=== PATIENT | male | born 1960 | race Caucasian/White ===

== ENCOUNTER 2020-09-03 08:56 | Outpatient (CLI) | payer MEDICARE, SELFPAY | END 2020-09-03 08:57 | disposition home or self-care (01) | LOC: ANHCOVIDVC 08:56 | PROVIDERS: PCP Internal Medicine | DX: Z23 Encounter for immunization (principal) | CPT/HCPCS: 0001A; 91300 ==

== ENCOUNTER 2020-09-24 08:57 | Outpatient (CLI) | payer MEDICARE, SELFPAY | END 2020-09-24 08:58 | LOC: ANHCOVIDVC 08:57 | PROVIDERS: PCP Internal Medicine | DX: Z23 Encounter for immunization (principal) | CPT/HCPCS: 0002A; 91300 ==

== ENCOUNTER 2023-04-29 05:32 | Day surgery (SDC) | payer MEDICARE, SELFPAY ==
[2023-04-19 14:23] VITALS: BMI 27.5
--- NOTE | 2023-04-28 13:10 | P.PNAN_ITS ---
Anes - Initial Pre Proc Eval Procedure: Operation Date: 04/29/23 10:30 Proposed Procedures p Esophagogastroduodenoscopy - Steve Blank MD Date/Time: 04/28/23 13:10 Surgeon: Steve Blank MD Pre Op Diagnosis: GERD without esophagitis Patient Data Age: 62 Gender: M Height: 1.91 m Weight: 100 kg Allergies Allergy/AdvReac Type Severity Reaction Status Date / Time ciprofloxacin Allergy Unknown Dyspnea / Verified 04/29/23 09:24 SOB omeprazole Allergy Unknown Nausea Verified 04/29/23 09:24 povidone-iodine Allergy Unknown BLISTER/MILAGRO Verified 04/29/23 09:24 H soap Allergy Unknown BLISTER/MILAGRO Verified 04/29/23 09:24 H Home Medications Medication Instructions Recorded Confirmed Type amitriptyline 75 mg tablet 75 mg PO HS 04/19/23 04/29/23 History lisinopril 20 mg tablet 20 mg PO DAILY 04/19/23 04/29/23 History lorazepam 1 mg tablet 1 mg PO TID PRN Anxiety 04/19/23 04/29/23 History pantoprazole 40 mg tablet,delayed 40 mg PO DAILY 04/19/23 04/29/23 History release Patient hx anesthesia problems: none Family hx anesthesia problems: none Results Review: All pre-operative results and documents have been reviewed as part of the pre-o perative evaluation. COUNT INCLUDES [facility] Past Medical History Medical History (Updated 04/28/23 @ 15:31 by Steve Blank MD) Atrial fibrillation Hypertension Slgzh-Tyttjdlya-Jkicc (WPW) syndrome Surgical History Surgical History (Updated 04/28/23 @ 13:11 by Tamir Brown DO) H/O cardiac radiofrequency ablation for WPW Social History Social History Substance use type: marijuana Spiritual care concerns: No Anes - Eval Final PreProcedure Day of Procedure 04/28/23 13:10 Patient weight: overweight Heart: regular rate and rhythm Lungs: clear to auscultation Airway: Mallampati scale class II Neurological: alert and oriented Last oral intake: >/= 8 hours ASA classification: III Emergent: no Anesthetic plan: proceed Anesthesia type and monitoring: general GIVS and standard monitoring Results Review: All pre-operative results and documents have been reviewed as part of the pre- operative evaluation. Informed Consent: The patient's anesthetic plan and its attendant risks and benefits were discussed with the patient/family/POA. Questions were solicited and answers provided to the satisfaction of the patient/family/POA.
--- NOTE | 2023-04-28 15:30 | PM.HPGS ---
History of Present Illness History of Present Illness Consent: Risks, benefits, and alternatives have been discussed and questions answered. Patient agrees to proceed with procedure. Chief complaint: GERD without esophagitis Narrative: Christiano Gautam is a 62 year old male who was referred because of dysphagia. He has a history of having a severe esophageal stricture which was dilated by another physician in 2019. Initially could only be dilated up to 12 mm. Eventually it was up to 18 mm. Review of Systems Review of Systems: All systems reviewed & are unremarkable except as noted in HPI and below PMFSH Past Medical History Medical History Atrial fibrillation Hypertension Elbrz-Gehqptowz-Wtnoc (WPW) syndrome Surgical History Surgical History H/O cardiac radiofrequency ablation for WPW Social History Social History Substance use type: marijuana Spiritual care concerns: No Meds Home Medications and Allergies Home Medications Medication Instructions Recorded Confirmed Type amitriptyline 75 mg tablet 75 mg PO HS 04/19/23 04/29/23 History lisinopril 20 mg tablet 20 mg PO DAILY 04/19/23 04/29/23 History lorazepam 1 mg tablet 1 mg PO TID PRN Anxiety 04/19/23 04/29/23 History pantoprazole 40 mg tablet,delayed 40 mg PO DAILY 04/19/23 04/29/23 History release Allergies Allergy/AdvReac Type Severity Reaction Status Date / Time ciprofloxacin Allergy Unknown Dyspnea / Verified 04/29/23 09:24 SOB omeprazole Allergy Unknown Nausea Verified 04/29/23 09:24 povidone-iodine Allergy Unknown BLISTER/MILAGRO Verified 04/29/23 09:24 H soap Allergy Unknown BLISTER/MILAGRO Verified 04/29/23 09:24 H Exam Const: General: alert Orientation/consciousness: patient oriented x3 Resp: Auscultation: clear to auscultation bilaterally Cardio: Rhythm: regular rhythm GI: GI Palp: Yes Soft to palpation and No Tenderness to palpation present (GI) Neuro: General: patient oriented x3 Assessment and Plan Assessment and plan (1) Dysphagia: Code(s): R13.10 - Dysphagia, unspecified Status: Acute Assessment and Plan: EGD with possible biopsy or dilatation or cautery.
[2023-04-29 09:33] VITALS: BP 143/106; PULSE 124; RESP 22; TEMP 36.8; O2SAT 96; BMI 27.8
--- NOTE | 2023-04-29 09:35 | SUR.PREOP ---
Patient very anxious. States he took Ativan 1 mg po at home early this morning and brought another 1 mg tablet to the hospital. Asking if he can take it now. Patient appears anxious. Heartrate 124. Placed on monitor and sinus tachycardia noted. B/P elevated. Notified Dr. Brown and he states it is okay to have patient take his dose of Ativan. Reviewed bottle and patient took 1 mg Lorazepam with a few sips of water. Remains on heart monitor. Will contine to assess.
[2023-04-29] MEDS: LACTATED RINGERS 1,000 ML 150 ML IV CONT (09:43)
[2023-04-29] MEDS: BENZOCAINE (*SP) 60 ML SPRAY CAN (HURRICAINE) 1 SPRAY MUCOUS MEM (10:19)
[2023-04-29 10:32] VITALS: BP 114/76; PULSE 106; RESP 17; O2SAT 91
[2023-04-29 10:42] VITALS: BP 123/95; PULSE 105; RESP 22; O2SAT 93
[2023-04-29 10:52] VITALS: BP 142/99; PULSE 102; RESP 14; O2SAT 95
== END 2023-04-29 11:14 | disposition home or self-care (01) ==
PROVIDERS: PCP Internal Medicine; Visit Provider Internal Medicine Gastroenterology
PROC: 0DJ08ZZ Inspection of Upper Intestinal Tract, Via Natural or Artificial Opening Endoscopic (ICD-10-PCS; CPT 43235; principal; 2023-04-29 10:30)
DX: K22.2 Esophageal obstruction (principal); I48.91 Unspecified atrial fibrillation; I10 Essential (primary) hypertension; I45.6 Pre-excitation syndrome; F12.90 Cannabis use, unspecified, uncomplicated
CPT/HCPCS: 43249; 88305; C1726; J2704; J7120

== ENCOUNTER 2023-06-10 00:40 | Day surgery (SDC) | payer MEDICARE, SELFPAY ==
[2023-05-25 13:28] VITALS: BMI 27.5
--- NOTE | 2023-06-08 10:15 | SUR.PREOP ---
Patient called regarding upcoming procedure. Reviewed preop instructions, appointment times, and procedure prep.
--- NOTE | 2023-06-09 15:57 | PM.HPGS ---
History of Present Illness History of Present Illness Consent: Risks, benefits, and alternatives have been discussed and questions answered. Patient agrees to proceed with procedure. Chief complaint: dysphagia Narrative: Christiano Gautam is a 62 year old male with dysphagia for solid food. Two months ago he was found have a high-grade stricture which could be dilated only up to about 13 mm. Review of Systems Review of Systems: All systems reviewed & are unremarkable except as noted in HPI and below PMFSH Past Medical History Medical History Atrial fibrillation Hypertension Exmhz-Lkftvafot-Bkqat (WPW) syndrome Surgical History Surgical History H/O cardiac radiofrequency ablation for WPW Social History Social History Smoking status: Never smoker Alcohol intake: current Drinks per week: 2 Substance use: never Substance use type: does not use Living arrangements: with family Spiritual care concerns: No Meds Home Medications and Allergies Home Medications Medication Instructions Recorded Confirmed Type amitriptyline 75 mg tablet 75 mg PO HS 04/19/23 05/25/23 History lisinopril 20 mg tablet 20 mg PO DAILY 04/19/23 05/25/23 History lorazepam 1 mg tablet 1 mg PO TID PRN Anxiety 04/19/23 05/25/23 History pantoprazole 40 mg tablet,delayed 40 mg PO DAILY 04/19/23 05/25/23 History release Allergies Allergy/AdvReac Type Severity Reaction Status Date / Time ciprofloxacin Allergy Unknown Dyspnea / Verified 06/10/23 08:48 SOB omeprazole Allergy Unknown Nausea Verified 06/10/23 08:48 povidone-iodine Allergy Unknown BLISTER/MILAGRO Verified 06/10/23 08:48 H soap Allergy Unknown BLISTER/MILAGRO Verified 06/10/23 08:48 H Exam Const: General: alert Orientation/consciousness: patient oriented x3 Resp: Auscultation: clear to auscultation bilaterally Cardio: Rhythm: regular rhythm GI: GI Palp: Yes Soft to palpation and No Tenderness to palpation present (GI) Neuro: General: patient oriented x3 Assessment and Plan Assessment and plan (1) Dysphagia: Code(s): R13.10 - Dysphagia, unspecified Status: Acute Assessment and Plan: EGD with possible biopsy or dilatation or cautery.
[2023-06-10 08:49] VITALS: BP 143/93; PULSE 113; RESP 18; TEMP 36.2; O2SAT 93
--- NOTE | 2023-06-10 08:57 | P.PNAN_ITS ---
Anes - Initial Pre Proc Eval Procedure: Operation Date: 06/10/23 09:30 Proposed Procedures p Esophagogastroduodenoscopy - Steve Blank MD Date/Time: 06/10/23 08:57 Surgeon: Steve Blank MD Pre Op Diagnosis: dysphagia Patient Data Age: 62 Gender: M Height: 1.91 m Weight: 105.2 kg Last Vital Signs Temp 36.2 C L 06/10/23 08:49 Pulse 113 H 06/10/23 08:49 Resp 18 06/10/23 08:49 BP 143/93 H 06/10/23 08:49 Pulse Ox 93 06/10/23 08:49 O2 Del Method Room Air 06/10/23 08:49 Allergies Allergy/AdvReac Type Severity Reaction Status Date / Time ciprofloxacin Allergy Unknown Dyspnea / Verified 06/10/23 08:48 SOB omeprazole Allergy Unknown Nausea Verified 06/10/23 08:48 povidone-iodine Allergy Unknown BLISTER/MILAGRO Verified 06/10/23 08:48 H soap Allergy Unknown BLISTER/MILAGRO Verified 06/10/23 08:48 H Home Medications Medication Instructions Recorded Confirmed Type amitriptyline 75 mg tablet 75 mg PO HS 04/19/23 05/25/23 History lisinopril 20 mg tablet 20 mg PO DAILY 04/19/23 05/25/23 History lorazepam 1 mg tablet 1 mg PO TID PRN Anxiety 04/19/23 05/25/23 History pantoprazole 40 mg tablet,delayed 40 mg PO DAILY 04/19/23 05/25/23 History release Patient hx anesthesia problems: none Family hx anesthesia problems: none Results Review: All pre-operative results and documents have been reviewed as part of the pre- operative evaluation. [facility] Past Medical History Medical History Atrial fibrillation Hypertension Dvrhc-Tqblmftca-Ajfry (WPW) syndrome Surgical History Surgical History H/O cardiac radiofrequency ablation for WPW Social History Social History Smoking status: Never smoker Alcohol intake: current Drinks per week: 2 Substance use: never Substance use type: does not use Living arrangements: with family Spiritual care concerns: No Anes - Eval Final PreProcedure Day of Procedure 06/10/23 08:57 Patient weight: overweight Heart: regular rate and rhythm Lungs: clear to auscultation Airway: Mallampati scale class II Neurological: alert and oriented Last oral intake: >/= 8 hours ASA classification: III Emergent: no Anesthetic plan: proceed Anesthesia type and monitoring: general GIVS and standard monitoring Results Review: All pre-operative results and documents have been reviewed as part of the pre- operative evaluation. Informed Consent: The patient's anesthetic plan and its attendant risks and benefits were discussed with the patient/family/POA. Questions were solicited and answers provided to the satisfaction of the patient/family/POA.
[2023-06-10] MEDS: LACTATED RINGERS 1,000 ML 30 ML IV CONT (08:59)
[2023-06-10 09:45] VITALS: BP 138/100; PULSE 102; RESP 23; O2SAT 94
[2023-06-10 09:55] VITALS: BP 133/95; PULSE 99; RESP 19; O2SAT 94
[2023-06-10 10:05] VITALS: BP 128/97; PULSE 93; RESP 25; O2SAT 95
== END 2023-06-10 10:12 | disposition home or self-care (01) ==
PROVIDERS: PCP Internal Medicine; Visit Provider Internal Medicine Gastroenterology
PROC: 0DJ08ZZ Inspection of Upper Intestinal Tract, Via Natural or Artificial Opening Endoscopic (ICD-10-PCS; CPT 43235; principal; 2023-06-10 09:30)
DX: K22.2 Esophageal obstruction (principal); I10 Essential (primary) hypertension
CPT/HCPCS: 43249; C1726; J2704; J7120

== ENCOUNTER 2024-04-16 02:01 | Day surgery (SDC) | payer MEDICARE, SELFPAY ==
[2024-04-03 11:11] VITALS: BMI 28.0
[2024-04-16] MEDS: LACTATED RINGERS 1,000 ML 150 ML IV CONT (09:35)
[2024-04-16 09:36] VITALS: BP 144/95; PULSE 117; RESP 22; TEMP 36.2; O2SAT 93; BMI 28.8
--- NOTE | 2024-04-16 09:48 | P.PNAN_ITS ---
Anes - Initial Pre Proc Eval Procedure: Operation Date: 04/16/24 10:30 Proposed Procedures p Colonoscopy - Zhen Doan MD Date/Time: 04/16/24 09:48 Surgeon: Zhen Doan MD Pre Op Diagnosis: Personal hx. of Colon polyps Patient Data Age: 63 Gender: M Height: 1.91 m Weight: 104.6 kg Last Vital Signs Temp 36.2 C L 04/16/24 09:36 Pulse 117 H 04/16/24 09:36 Resp 22 H 04/16/24 09:36 BP 144/95 H 04/16/24 09:36 Pulse Ox 93 04/16/24 09:36 O2 Del Method Room Air 04/16/24 09:36 Allergies Allergy/AdvReac Type Severity Reaction Status Date / Time ciprofloxacin Allergy Unknown Dyspnea / Verified 04/16/24 09:23 SOB omeprazole Allergy Unknown Nausea Verified 04/16/24 09:23 povidone-iodine Allergy Unknown BLISTER/MILAGRO Verified 04/16/24 09:23 H soap Allergy Unknown BLISTER/MILAGRO Verified 04/16/24 09:23 H Home Medications Medication Instructions Recorded Confirmed Type amitriptyline 75 mg tablet 75 mg PO HS 04/19/23 04/16/24 History lisinopril 20 mg tablet 20 mg PO DAILY 04/19/23 04/16/24 History lorazepam 1 mg tablet 1 mg PO TID PRN Anxiety 04/19/23 04/16/24 History pantoprazole 40 mg tablet,delayed 40 mg PO DAILY 04/19/23 04/16/24 History release Patient hx anesthesia problems: none Family hx anesthesia problems: none Results Review: All pre-operative results and documents have been reviewed as part of the pre- operative evaluation. [facility] Past Medical History Medical History (Updated 04/16/24 @ 09:49 by Andrea Andrew MD) Atrial fibrillation Colorectal polyps Hypertension Overweight Issgg-Jsrfjitgx-Vhuiq (WPW) syndrome Surgical History Surgical History (Updated 04/16/24 @ 09:49 by Andrea Andrew MD) H/O cardiac radiofrequency ablation for WPW H/O colonoscopy Social History Social History Smoking status: Never smoker Alcohol intake: current Drinks per week: 1 Substance use: former Substance use type: marijuana Living arrangements: with friend(s) Additional living arrangements comments: girl friend of 30 years Spiritual care concerns: No Anes - Eval Final PreProcedure Day of Procedure 04/16/24 09:48 Patient weight: overweight Heart: regular rate and rhythm Lungs: clear to auscultation Airway: Mallampati scale class III and other (capped teeth) Neurological: alert and oriented Last oral intake: >/= 8 hours ASA classification: III Emergent: no Anesthetic plan: proceed Anesthesia type and monitoring: general GIVS and standard monitoring Results Review: All pre-operative results and documents have been reviewed as part of the pre- operative evaluation. Informed Consent: The patient's anesthetic plan and its attendant risks and benefits were discussed with the patient/family/POA. Questions were solicited and answers provided to the satisfaction of the patient/family/POA.
--- NOTE | 2024-04-16 10:00 | PM.HPGS ---
History of Present Illness History of Present Illness Consent: Risks, benefits, and alternatives have been discussed and questions answered. Patient agrees to proceed with procedure. Chief complaint: Personal hx. of Colon polyps Narrative: Christiano Gautam is a 63 year old male with colon polyp, last colonoscopy 5 years ago Review of Systems Review of Systems: All systems reviewed & are unremarkable except as noted in HPI and below PMFSH Past Medical History Medical History (Updated 04/16/24 @ 10:00 by Zhen Doan MD) Atrial fibrillation Colorectal polyps Hypertension Overweight Ovwva-Wngvncbsh-Anivz (WPW) syndrome Surgical History Surgical History (Updated 04/16/24 @ 09:49 by Andrea Andrew MD) H/O cardiac radiofrequency ablation for WPW H/O colonoscopy Social History Social History Smoking status: Never smoker Alcohol intake: current Drinks per week: 1 Substance use: former Substance use type: marijuana Living arrangements: with friend(s) Additional living arrangements comments: girl friend of 30 years Spiritual care concerns: No Meds Home Medications and Allergies Home Medications Medication Instructions Recorded Confirmed Type amitriptyline 75 mg tablet 75 mg PO HS 04/19/23 04/16/24 History lisinopril 20 mg tablet 20 mg PO DAILY 04/19/23 04/16/24 History lorazepam 1 mg tablet 1 mg PO TID PRN Anxiety 04/19/23 04/16/24 History pantoprazole 40 mg tablet,delayed 40 mg PO DAILY 04/19/23 04/16/24 History release Allergies Allergy/AdvReac Type Severity Reaction Status Date / Time ciprofloxacin Allergy Unknown Dyspnea / Verified 04/16/24 09:23 SOB omeprazole Allergy Unknown Nausea Verified 04/16/24 09:23 povidone-iodine Allergy Unknown BLISTER/MILAGRO Verified 04/16/24 09:23 H soap Allergy Unknown BLISTER/MILAGRO Verified 04/16/24 09:23 H Vital Signs Vital Signs - 24 hr 04/16/24 09:36 Temperature 97.1 F L Pulse Rate 117 H Respiratory Rate 22 H Blood Pressure 144/95 H Pulse Oximetry 93 Oxygen Delivery Room Air Exam Const: General: comfortable and no acute distress HENMT: Face/Nose/Sinus: Normal nares present Eyes: General: appearance normal, both eyes and all related structures Neck: Neck: no JVD Resp: Auscultation: clear to auscultation bilaterally Cardio: Rate: regular rate Rhythm: regular rhythm GI: Inspection: non-distended GI Palp: Yes Soft to palpation Skin: General skin exam: normal color Neuro: General: gait normal Speech: normal speech Extrem: General: normal to inspection Psych: Mental Status: mental status grossly normal Assessment and Plan Assessment and plan (1) Colorectal polyps: Code(s): K63.5 - Polyp of colon; K62.1 - Rectal polyp Status: Acute Assessment and Plan: colonoscopy
[2024-04-16 10:19] VITALS: BP 128/99; PULSE 103; RESP 22; O2SAT 100
[2024-04-16 10:29] VITALS: BP 123/98; PULSE 103; RESP 22; O2SAT 100
[2024-04-16 10:39] VITALS: BP 120/97; PULSE 100; RESP 20; O2SAT 100
== END 2024-04-16 10:49 | disposition home or self-care (01) ==
PROVIDERS: PCP Internal Medicine; Visit Provider Internal Medicine Gastroenterology
PROC: 0DJD8ZZ Inspection of Lower Intestinal Tract, Via Natural or Artificial Opening Endoscopic (ICD-10-PCS; CPT 45378; principal; 2024-04-16 10:30)
DX: Z12.11 Encounter for screening for malignant neoplasm of colon (principal); D12.2 Benign neoplasm of ascending colon; K64.8 Other hemorrhoids; I10 Essential (primary) hypertension; I48.91 Unspecified atrial fibrillation; I45.6 Pre-excitation syndrome; F12.90 Cannabis use, unspecified, uncomplicated; Z98.890 Other specified postprocedural states; Z86.79 Personal history of other diseases of the circulatory system
CPT/HCPCS: 45385; 88305; J2003; J2704; J7120